=== PATIENT | female | born 1960 | race Caucasian/White ===

== ENCOUNTER → 2018-10-09 | Day surgery (SDC) | payer OTHER ==
[~2018-10-09] VITALS: Ht 160 cm; Wt 70.3 kg
[2018-10-09 08:33] VITALS: BP 141/78
[2018-10-09 17:19] VITALS: BP 141/79
== END | disposition home or self-care (01) ==
LOC: DS 08:10 → MA 10:00
PROVIDERS: Surgery
PROC: 0HBU0ZZ Excision of Left Breast, Open Approach (ICD-10-PCS; principal; 2018-10-09 13:30)
DX: D24.2 Benign neoplasm of left breast (principal); F17.210 Nicotine dependence, cigarettes, uncomplicated
CPT/HCPCS: J0690; J2001; J2250; J2704; J3010; J3490; J7120